=== PATIENT | male | born 1995 | race Caucasian/White ===

== ENCOUNTER 2018-09-21 15:16 | Emergency (ER) | payer BC, MEDICAID, OTHER ==
[~2018-09-21] VITALS: Ht 180.3 cm; Wt 77.1 kg
--- NOTE | 2018-09-21 17:01 | NUR ---
Patient discharged to home in stable conditon. Written and verbal after care instructions given. Patient verbalizes understanding of instructions.
[2018-09-21 17:02] VITALS: BP 124/75
== END 2018-09-21 17:03 | disposition home or self-care (01) ==
LOC: ER 15:16
DX: S90.31XA Contusion of right foot, initial encounter (principal); W51.XXXA Accidental striking against or bumped into by another person, initial encounter; Y93.66 Activity, soccer; Y92.89 Other specified places as the place of occurrence of the external cause; Y99.8 Other external cause status
CPT/HCPCS: 73630; A4663

== ENCOUNTER 2019-01-22 11:40 | Emergency (ER) | payer SELFPAY ==
[~2019-01-22] VITALS: Ht 180.3 cm; Wt 77.1 kg
--- NOTE | 2019-01-22 12:41 | NUR ---
Patient discharged to home in stable conditon. Written and verbal after care instructions given. Patient verbalizes understanding of instructions.pt walks in steady gait. pt with mother. disc copy of x-ray provided for follow up.
== END 2019-01-22 12:46 | disposition home or self-care (01) ==
LOC: ER 11:41
DX: S62.637A Displaced fracture of distal phalanx of left little finger, initial encounter for closed fracture (principal); X58.XXXA Exposure to other specified factors, initial encounter; Y93.67 Activity, basketball; Y92.89 Other specified places as the place of occurrence of the external cause; Y99.8 Other external cause status
CPT/HCPCS: 73140; A4663

== ENCOUNTER 2020-11-15 19:14 | Emergency (ER) | payer BC, OTHER ==
[~2020-11-15] VITALS: Ht 177.8 cm; Wt 97.5 kg
--- NOTE | 2020-11-15 19:39 | NUR ---
Patient presents to ED from home for a small amount of blood leaking from under his left armpit. Patient got home, and noticed that his shirt had a blood stain on it under his left armpit. He tried squezing it, thinking it was a pimple/ingrown hair - then came to ED. A&Ox4. Able to make needs known. Normal affect. PERRLA. No signs of trauma. No SI/HI/AH/VH. Saturations >94% on room air. No SOB, no labored breathing, no retractions. Lungs clear to auscultation bilaterally. No signs of cyanosis. Regular rate & rhythm. No murmurs, no palpitations, no chest pain. Well perfused skin. Afebrile. GI/: No N/V/D or constipation. Soft + non-tender/distended. Normoactive bowel sounds. No guarding. Misc: No pain. Well nourished.
[2020-11-15] MEDS ORDERED: SULF1TAB48 PO (19:51)
[2020-11-15] MEDS ORDERED: OXYC-128 PO (19:51)
--- NOTE | 2020-11-15 19:58 | NUR ---
Patient discharged to home in stable condition. Written and verbal after care instructions given. Patient verbalizes understanding of instructions. Stressed follow up or return to ER for worsening s/s. VSS. Steady Gait. All belongings with patient. Culturette sent to lab.
[2020-11-15 20:00] VITALS: BP 130/75
== END 2020-11-15 19:54 | disposition home or self-care (01) ==
LOC: ER 19:19
DX: L02.412 Cutaneous abscess of left axilla (principal)
CPT/HCPCS: 87070; A4663

== ENCOUNTER 2021-02-28 18:32 | Emergency (ER) | payer BC, OTHER ==
[~2021-02-28] VITALS: Ht 180.3 cm; Wt 99.8 kg
[~2021-02-28 18:32] MED LIST: OXYC-128 PO; SULF1TAB48 PO
--- NOTE | 2021-02-28 19:40 | NUR ---
Dr Reynoso into re eval patient.
[2021-02-28] MEDS ORDERED: IBUP-1955 PO (19:41)
[2021-02-28 19:47] VITALS: BP 125/68
--- NOTE | 2021-02-28 19:47 | NUR ---
Patient discharged to home in stable condition. Written and verbal after care instructions given. Patient verbalizes understanding of instructions. Stressed follow up or return to ER for worsening s/s.
== END 2021-02-28 19:47 | disposition home or self-care (01) ==
LOC: ER 18:38
DX: S90.112A Contusion of left great toe without damage to nail, initial encounter (principal); X58.XXXA Exposure to other specified factors, initial encounter; Y93.66 Activity, soccer; Y92.89 Other specified places as the place of occurrence of the external cause
CPT/HCPCS: 73660; A4663

== ENCOUNTER 2022-09-20 09:08 | Emergency (ER) | payer BC, OTHER ==
[~2022-09-20] VITALS: Ht 177.8 cm; Wt 97.5 kg
[~2022-09-20 09:08] MED LIST changes: +IBUP-1955 PO
[2022-09-20] MEDS ORDERED: IBUPROFEN 400 MG TABLET PO ONE (10:00)
[2022-09-20] MEDS ORDERED: ACETAMINOPHEN 325 MG TABLET PO ONE (10:00)
--- NOTE | 2022-09-20 10:00 | NUR ---
Pt seen by . Safety measures in place. Will continue to monitor.
[2022-09-20] MEDS ORDERED: ACETAMINOPHEN 325 MG TABLET ONE (10:05)
[2022-09-20] MEDS ORDERED: IBUPROFEN 400 MG TABLET ONE (10:05)
--- NOTE | 2022-09-20 11:19 | NUR ---
Patient discharged to home in stable condition. Pt did not want to wait for discharge paperwork, thus not signing discharge paperwork. Gave patient copy of X-Rays. Stressed follow up or return to ER for worsening s/s.
[2022-09-20 11:20] VITALS: BP 146/84
== END 2022-09-20 11:55 | disposition home or self-care (01) ==
LOC: ER 09:08
DX: M54.50 Low back pain, unspecified (principal); Z79.1 Long term (current) use of non-steroidal anti-inflammatories (NSAID); Z79.899 Other long term (current) drug therapy; V89.2XXA Person injured in unspecified motor-vehicle accident, traffic, initial encounter; Y93.89 Activity, other specified; Y92.89 Other specified places as the place of occurrence of the external cause; Y99.8 Other external cause status
CPT/HCPCS: 72100; 72170; A4663